=== PATIENT | female | born 1980 | race Caucasian/White ===

== ENCOUNTER 2019-05-17 15:49 | Emergency (ER) | payer OTHER ==
[~2019-05-17] VITALS: Ht 157.5 cm; Wt 68.0 kg
[~2019-05-17 15:49] MED LIST: Septra Ds Tablet PO; TRAM1TAB98 PO
== END 2019-05-17 17:49 | disposition home or self-care (01) ==
LOC: ER 15:49
DX: R03.0 Elevated blood-pressure reading, without diagnosis of hypertension (principal)

== ENCOUNTER 2025-02-14 13:47 | Emergency (ER) | payer OTHER ==
[~2025-02-14] VITALS: Ht 157.5 cm; Wt 68.9 kg
[2025-02-14] MEDS ORDERED: CARVEDILOL6.25 MG PO (14:39)
[2025-02-14] MEDS ORDERED: MELOXICAM15 MG PO (14:40)
[2025-02-14] MEDS ORDERED: BUPROPION XL450 MG PO (14:40)
[2025-02-14] MEDS ORDERED: ONDANSETRON HCL 2 MG/ML VIAL IV STA (16:07)
[2025-02-14] MEDS ORDERED: FAMOTIDINE/PF 20 MG/2 ML VIAL IV PUSH STA (16:07)
[2025-02-14] MEDS ORDERED: RINGERS SOLUTION,LACTATED 1,000 ML IV STA (16:08)
[2025-02-14] MEDS ORDERED: ONDANSETRON HCL 2 MG/ML VIAL ONE (16:37)
[2025-02-14] MEDS ORDERED: FAMOTIDINE/PF 20 MG/2 ML VIAL ONE (16:37)
[2025-02-14 17:02] LABS: BASO % 0.6 % (0.1-1.2); EOS # 0.21 (0.04-0.54); EOS % 3.2 % (0.7-7.0); LYMPH # 2.52 (1.18-3.74); LYMPH % 38.1 % (19.3-53.1); MEAN PLATELET VOLUME 9.10 fl (9.4-12.4); MONO # 0.44 (0.24-0.82); MONO % 6.7 % (4.7-12.5); NEUT # 3.37 (1.56-6.13); NEUT % 50.9 % (34.0-71.1); RED CELL DISTRIBUTION WIDTH 11.9 % (11.6-14.4)
[2025-02-14 17:28] LABS: URINE APPEARANCE Clear; URINE BILIRRUBIN Negative (NEGATIVE); URINE BLOOD Negative; URINE COLOR Yellow; URINE GLUCOSE Negative (NEGATIVE); URINE KETONE Negative (NEGATIVE); URINE LEUKOCYTE Negative; URINE NITRATE Negative; URINE PROTEIN Negative (NEGATIVE); URINE UROBILINOGEN 0.2 E.U./dl
[2025-02-14 17:31] LABS: URINE BACTERIA 349.1 uL (0.0-1933); URINE EPITHELIAL CELLS 8.9 uL (0.0-38.8); URINE RBC 6.7 uL (0.0-20.8); URINE WBC 3.5 uL (0.0-23.2)
[2025-02-14 17:46] LABS: ALT/SGPT 20.0 U/L (12-78); AST/SGOT 17.0 U/L (15-37); BILIRUBIN TOTAL 0.28 mg/dL (0.3-1.2); BUN CREA RATIO 15.0 (7.0-25.0); CREATININE SERUM 0.59 mg/dL (0.55-1.02); GFR 111.24; GLOBULINA 3.0 G/DL (2.4-3.5); GLUCOSE FASTING 92.0 mg/dL (65-100); OSMOLALITY SERUM 281.0 MOSM/KG (275-295)
[2025-02-14 17:56] LABS: URINE CAST 0.00 uL (0.0-1.40)
[2025-02-14] MEDS ORDERED: DEXAMETHASONE SODIUM PHOSPHATE 4 MG/ML VIAL IV ONE (20:45)
[2025-02-14] MEDS ORDERED: KETOROLAC TROMETHAMINE 30 MG VIAL IU ONE (20:45)
[2025-02-14] MEDS ORDERED: DEXAMETHASONE SODIUM PHOSPHATE 4 MG/ML VIAL ONE (20:48)
[2025-02-14] MEDS ORDERED: KETOROLAC TROMETHAMINE 30 MG VIAL ONE (20:48)
== END 2025-02-14 20:56 | disposition home or self-care (01) ==
LOC: ER 13:47
PROVIDERS: General Practice
DX: K52.89 Other specified noninfective gastroenteritis and colitis (principal); R11.2 Nausea with vomiting, unspecified

== ENCOUNTER → 2025-05-19 | Emergency (ER) | payer OTHER ==
[~2025-05-19] VITALS: Ht 157.5 cm; Wt 70.3 kg
[~2025-05-19] MED LIST changes: +BENZONATATE200 M1 PO; +BUPROPION XL450 MG PO; +CARVEDILOL6.25 MG PO; +GUAIFEN/DEXTROMETHORPHAN/PE 10 ML BLIST.PACK PO ONE; +IPRATROPIU0.2 MG/1 M IH; +IPRATROPIUM BROMIDE 0.5 MG/2.5 ML AMPUL.NEB IH SCH; +KETOROLAC TROMETHAMINE 30 MG VIAL IU ONE; +MELOXICAM15 MG PO; +METHYLPREDNISOLONE SOD SUCC 125 MG VIAL IM ONE; +TUSNEL LIQUID178 ML PO; +ZITHROMAX500 MG PO
[2025-05-19 12:45] VITALS: BP 116/77; O2SAT 99
[2025-05-19 16:30] LABS: BASO % 0.5 % (0.1-1.2); EOS # 0.29 (0.04-0.54); EOS % 3.3 % (0.7-7.0); LYMPH # 3.13 (1.18-3.74); LYMPH % 35.2 % (19.3-53.1); MEAN PLATELET VOLUME 9.40 fl (9.4-12.4); MONO # 0.60 (0.24-0.82); MONO % 6.8 % (4.7-12.5); NEUT # 4.78 (1.56-6.13); NEUT % 53.7 % (34.0-71.1); RED CELL DISTRIBUTION WIDTH 12.5 % (11.6-14.4)
[2025-05-19 17:04] LABS: COVID-19 AG NEGATIVE (NEGATIVE)
== END | disposition home or self-care (01) ==
LOC: ER 10:49
PROVIDERS: General Practice
DX: B34.8 Other viral infections of unspecified site (principal); J98.8 Other specified respiratory disorders; Z20.822 Contact with and (suspected) exposure to COVID-19; I10 Essential (primary) hypertension; Z86.79 Personal history of other diseases of the circulatory system